=== PATIENT | male | born 1985 | race Caucasian/White ===

== ENCOUNTER 2018-12-28 11:34 | Emergency (ER) | payer OTHER, SELFPAY ==
[2018-12-28 11:41] VITALS: BP 136/84; PULSE 93; RESP 15; TEMP 36.8; O2SAT 97; BMI 29.7
--- NOTE | 2018-12-28 11:42 | DI.RAD.S_ITS ---
PROCEDURE: XR CHEST 2V INDICATIONS: cough,fever TECHNIQUE: 2 views of the chest were acquired. COMPARISON: None. FINDINGS: Surgical changes and devices: None. Lungs and pleura: Lungs are clear. No pleural effusions or pneumothorax. Mediastinum: Mediastinal contours are normal. Heart size is normal. Bones and chest wall: No suspicious bony abnormalities. Soft tissues appear unremarkable. IMPRESSION: Negative chest. No acute cardiopulmonary process is evident. Dictated by: Noble Zheng M.D. on 12/28/2018 at 10:50 Approved by: Noble Zheng M.D. on 12/28/2018 at 11:00
[2018-12-28 12:59] LABS: Influenza A and B by PCR Rapid Negative (Negative)
--- NOTE | 2018-12-28 14:41 | ED.FEVER ---
HPI - Fever <CLEMENTINA Flores - Last Filed: 12/28/18 21:56> General Chief Complaint: Fever Stated Complaint: RUNNING FEVER, ALMOST PASSED OUT Time Seen by Provider: 12/28/18 14:30 Source: patient Mode of arrival: ambulatory Limitations: no limitations History of Present Illness HPI Narrative: 33-year-old male with history of depression and that is a nonsmoker here for complaint of having cold like symptoms over the past week. He reports having cough as well as fevers. Positive p.o. intake. He does report having episodes of tussive vomiting. He reports that his cough has been productive. He has had nasal congestion. He denies any contact or family members that have the same symptoms. Is no other concerns or complaints. MD complaint: fever Related Data Home Medications Medication Instructions Recorded Confirmed citalopram 20 mg PO DAILY 12/28/18 12/28/18 ergocalciferol (vitamin D2) See Rx Instructions .ROUTE .COMPLEX 12/28/18 12/28/18 [Vitamin D2] omeprazole 20 mg PO DAILY 12/28/18 12/28/18 propranolol 10 mg PO BID PRN 12/28/18 12/28/18 zaleplon 10 mg PO BEDTIME 12/28/18 Previous Rx's Medication Instructions Recorded benzonatate 200 mg PO TID PRN #20 cap 12/28/18 ondansetron 4 mg PO Q8-12H PRN #10 tab 12/28/18 Allergies Allergy/AdvReac Type Severity Reaction Status Date / Time acetaminophen [From Vicodin] Allergy Verified 12/28/18 11:41 hydrocodone [From Vicodin] Allergy Verified 12/28/18 11:41 paroxetine [From Paxil] Allergy Verified 12/28/18 11:41 Review of Systems <CLEMENTINA Flores - Last Filed: 12/28/18 21:56> Constitutional Denies chills, Reports fever(s), Denies lethargy and Denies weakness Eyes Denies change in vision, Denies eye discharge, Denies irritation and Denies loss of vision ENT Ears, Nose, Mouth, and Throat: Denies change in voice, Reports nasal congestion, Reports nasal discharge, Denies neck pain and Denies sore throat Cardiovascular Denies chest pain, Denies irregular heart rhythm, Denies lightheadedness, Denies palpitations, Denies dyspnea, Denies dyspnea on exertion and Denies orthopnea Respiratory Reports cough, Denies dyspnea, Denies dyspnea on exertion and Denies wheezing Gastrointestinal Gastrointestinal: Denies abdominal pain, Denies change in bowel habits, Denies diarrhea, Denies nausea and Denies vomiting Genitourinary Denies hematuria, Denies flank pain, Denies urinary incontinence and Denies urinary urgency Musculoskeletal Denies neck pain Integumentary/Breasts Denies pruritus, Denies erythema, Denies rash and Denies wounds Neurologic Denies confusion, Denies loss of vision and Denies weakness Psychiatric Denies anxiety, Denies confusion, Denies depression, Denies homicidal ideation and Denies suicidal ideation Endocrine Denies palpitations Hematologic/Lymphatic Denies easy bruising Allergic/Immunologic Denies wheezing PFSH <CLEMENTINA Flores - Last Filed: 12/28/18 21:56> Social History Smoking Status: Never smoker Social History Smoking Status: Never smoker Exam <CLEMENTINA Flores - Last Filed: 12/28/18 21:56> Initial Vital Signs Initial Vital Signs: Vital Signs Temperature 98.3 F 12/28/18 11:41 Pulse Rate 93 H 12/28/18 11:41 Respiratory Rate 15 12/28/18 11:41 Blood Pressure 136/84 12/28/18 11:41 Pulse Oximetry 97 12/28/18 11:41 Const General: cooperative and well developed Nutritional Appearance: well nourished Orientation: alert, awake, oriented x3 and not confused HENNM Mouth: oral mucosae normal and moist mucous membranes Throat: posterior oropharynx normal Chest Chest: normal inspection of the chest Resp Effort & Inspection: normal respiratory effort, able to speak in complete sentences, no respiratory distress and no use of accessory muscles Auscultation: clear to auscultation bilaterally, no rales, no rhonchi and no wheezes Cardio Rate: regular rate Rhythm: regular rhythm Heart Sounds: no click, no gallops, no murmurs and no rubs Skin General: no rashes or lesions noted, No jaundice and No petechiae Neuro General: alert, oriented x3, gait normal and no focal motor deficits Speech: speech normal <Ricardo Perez DO - Last Filed: 12/29/18 20:50> Initial Vital Signs Initial Vital Signs: Vital Signs Temperature 98.3 F 12/28/18 11:41 Pulse Rate 93 H 12/28/18 11:41 Respiratory Rate 15 12/28/18 11:41 Blood Pressure 136/84 12/28/18 11:41 Pulse Oximetry 97 12/28/18 11:41 Course <CLEMENTINA Flores - Last Filed: 12/28/18 21:56> Orders Ordered: ED Orders 12/28/18 11:42 Chest [XR chest 2V] Stat 12/28/18 11:43 Influenza A and B by PCR Rapid Stat Vital Signs - 8 hr 12/28/18 15:14 Temperature 98.3 F Pulse Rate 88 Blood Pressure 136/78 Pulse Oximetry 99 <Ricardo Perez DO - Last Filed: 12/29/18 20:50> Orders Ordered: ED Orders 12/28/18 11:42 Chest [XR chest 2V] Stat 12/28/18 11:43 Influenza A and B by PCR Rapid Stat Vital Signs - 8 hr 12/28/18 15:14 Temperature 98.3 F Pulse Rate 88 Blood Pressure 136/78 Pulse Oximetry 99 MDM - Fever <CLEMENTINA Flores - Last Filed: 12/28/18 21:56> Lab Data Lab Results 12/28/18 Range/Units 11:43 Influenza A & B (PCR) Negative (Negative) Imaging Data Chest x-ray: Radiologist's impression: [place] [address] XRay Report Signed Patient: Lucas Curry JMR#: [id number] : 1985Acct:[id number] Age/Sex: 33 / MDate of Service: 12/28/18 Loc: ED Accession Number: [id number] Procedure: XR chest 2V Ordering Provider: Ricardo Perez D.O. PROCEDURE: XR CHEST 2V INDICATIONS: cough,fever TECHNIQUE: 2 views of the chest were acquired. COMPARISON: None. FINDINGS: Surgical changes and devices: None. Lungs and pleura: Lungs are clear. No pleural effusions or pneumothorax. Mediastinum: Mediastinal contours are normal. Heart size is normal. Bones and chest wall: No suspicious bony abnormalities. Soft tissues appear unremarkable. IMPRESSION: Negative chest. No acute cardiopulmonary process is evident. Dictated by: Noble Zheng M.D. on 12/28/2018 at 10:50 Approved by: Noble Zheng M.D. on 12/28/2018 at 11:00 [facility] Narrative Medical decision making narrative: Chest x-ray was obtained was negative for any acute findings. A influenza swab was obtained was negative. Signs and symptoms presents as a viral upper respiratory infection. Plenty of fluids and rest. Saline irrigation and nasal passages and hot showers to help with nasal congestion. Hyel-mcu-xdebpqq Tylenol or Motrin as needed for any discomfort and fever. May use ozlq-slf-tbdukvg guaifenesin to help thin secretions. He is prescribed Tessalon Perles to help with cough. Zofran is prescribed to help with any nausea. Follow up with primary care provider next week. Return emergency room for any worsening symptoms. <Ricardo Perez DO - Last Filed: 12/29/18 20:50> Lab Data Lab Results 12/28/18 Range/Units 11:43 Influenza A & B (PCR) Negative (Negative) Discharge Plan Departure Patient Disposition: Home Clinical Impression: Viral infection Discharge Date/Time: 12/28/18 15:15 Interventions: ED Discharge Assessment Last Done: 12/28/18 15:14 Instructions: Common Cold Activity Restrictions/Additional Instructions: Chest x-ray was obtained and was negative for any acute findings. Influenza swab was obtained and was negative. Signs and symptoms presents as a viral illness. Plenty of fluids and rest. May use mzvt-eqr-hqozggv guaifenesin to help with congestion. Oahe-inl-xpptxjq Tylenol or Motrin as needed for any discomfort and fever. Saline irrigation and nasal passages and hot showers to help with congestion follow up with primary care provider next week for re-evaluation. Tessalon Perles are prescribed help with cough use as directed. Zofran is prescribed help with any nausea also use as directed. For any worsening symptoms return to the emergency room. Prescriptions: New ondansetron 4 mg tablet,disintegrating 4 mg PO Q8-12H PRN (Reason: nausea and vomiting) Qty: 10 RF: 0 benzonatate 200 mg capsule 200 mg PO TID PRN (Reason: cough) Qty: 20 RF: 0 No Action propranolol 10 mg tablet 10 mg PO BID PRN (Reason: Anxiety) RF: 0 citalopram 20 mg tablet 20 mg PO DAILY RF: 0 omeprazole 20 mg capsule,delayed release(DR/EC) 20 mg PO DAILY RF: 0 zaleplon 10 mg capsule 10 mg PO BEDTIME RF: 0 ergocalciferol (vitamin D2) [Vitamin D2] 50,000 unit capsule See Rx Instructions .ROUTE .COMPLEX RF: 0 Referrals: Eli Horowitz [Primary Care Provider] - Stand Alone Forms: Work Release Note <Ricardo Perez DO - Last Filed: 12/29/18 20:50> Cosign ED Attending Farhanature Attestation: I was immediately available in the department for consultation. Documentation has been reviewed. I agree with assessment and plan.
[2018-12-28 15:14] VITALS: BP 136/78; PULSE 88; TEMP 36.8; O2SAT 99
== END 2018-12-28 15:15 | disposition home or self-care (01) ==
PROVIDERS: Emergency Medicine; Emergency Provider Nurse Practitioner Family; PCP Nurse Practitioner
DX: B34.9 Viral infection, unspecified (principal)
CPT/HCPCS: 71046; 87400; 99282; 99284

== ENCOUNTER → 2024-10-24 16:25 | Outpatient (CLI) | payer OTHER, SELFPAY ==
--- NOTE | 2024-10-24 16:27 | DI.MRI.S_ITS ---
PROCEDURE: MR SHOULDER LT WO/W CON INDICATIONS: SUPERIOR GLENOID LABRUM LESION LEFT SHOULDER TECHNIQUE: Noncontrast oblique coronal T1 spin echo and T2 fast spin echo with fat saturation, oblique sagittal T1 spin echo and T2 fast spin echo with fat saturation, axial T1 spin echo and T2 fast spin echo with fat saturation through the shoulder. Post-contrast oblique coronal, oblique sagittal, and axial T1 spin echo with fat saturation through the shoulder. COMPARISON: Outside Film, MR, MR SHOULDER LEFT WITHOUT CONTRAST, 06/03/2022, 14:13. [facility], CR, XR SHOULDER 2+ VIEWS LEFT, 07/30/2022, 15:00. FINDINGS: Image quality: Excellent. Rotator cuff: The supraspinatus, and the infraspinatus are unremarkable. The teres minor and the subscapularis are unremarkable. No muscle edema or fatty atrophy. Bones and bursae: Status post subacromial decompression. No significant degenerative changes acromioclavicular joint. Type 1 acromion. No os acromiale. No subacromial/subdeltoid bursitis. Multifocal mild subchondral cystic changes of the humeral head, reactive. Suture anchor is seen in the anterior humeral head. No acute fracture. Postprocedure changes in the superior glenoid. Capsule and soft tissues: Superior labral tear, extending anteriorly to the anterior superior labrum.. Small amount intraosseous fluid in the superior glenoid, favoring reactive. Small paralabral cyst about the superior posterior labrum, measuring 6 mm. The extra-articular biceps tendon is unremarkable. The intra-articular biceps tendon is not visualized. Patient is likely status post biceps tenodesis. No significant glenohumeral effusion. No intra-articular body. IMPRESSION: 1. Status post subacromial decompression and biceps tenodesis. 2. Status post prior superior labral repair. Superior labral tear, extending anteriorly to the anterior labrum. Somewhat limited evaluation given non arthro graphic exam. 6 mm paralabral cyst about the superior posterior labrum. Dictated by: Savita Nava M.D. on 10/25/2024 at 10:23 Approved by: Savita Nava M.D. on 10/25/2024 at 10:34
== END ==
PROVIDERS: PCP Internal Medicine; Referring Provider Internal Medicine; Visit Provider Internal Medicine
DX: S43.432A Superior glenoid labrum lesion of left shoulder, initial encounter (principal)
CPT/HCPCS: 73223; A9579

== ENCOUNTER 2025-08-24 09:25 | Day surgery (SDC) | payer OTHER, SELFPAY ==
[2025-08-24 09:42] VITALS: BP 113/77; PULSE 77; RESP 14; TEMP 36.4; O2SAT 98
[2025-08-24] MEDS: LACTATED RINGERS 1,000 ML 42 ML IV (09:53)
--- NOTE | 2025-08-24 09:58 | EKG_ITS ---
[address] [address] [address] [address] Test Date: 2025-08-24 Pat Name: Lucas Curry Department: Room: Gender: Male [employer] Machine Operator: Savannah ALDRIDGE : 1985 Requested By: Order Number: [id number] Reading MD: Robert Griffin Measurements Intervals [place] Rate: 72 P: 22 NE: 126 QRS: 19 QRSD: 78 T: 2 QT: 382 QTc: 418 Interpretive Statements Normal sinus rhythm Electronically Signed On 08-24-2025 18:46:43 PDT by Robert Griffin
--- NOTE | 2025-08-24 10:01 | PM.HP.IH.1 ---
History of Present Illness History of Present Illness Date Patient Seen: 08/24/25 Time Patient Seen: 10:02 Chief complaint: SDC Narrative: Lucas is a 40-year-old man with dysphagia and lymphadenopathy. See the office notes from July for details. He has not yet had his repeat imaging done. [facility] Social History Smoking Status: Current some day smoker alcohol intake: never Meds Home Medications and Allergies Home Medications ?Medication ?Instructions ?Recorded ?Confirmed ?Type albuterol sulfate 90 mcg/actuation 1 puff inhalation Q4H PRN wheezing 07/27/25 08/24/25 History aerosol inhaler gabapentin 600 mg tablet 600 mg PO 4XD 07/27/25 08/24/25 History syringe with needle, safety 3 mL #100 ea 07/27/25 07/27/25 History 23 gauge x 1 (BD Integra Syringe) testosterone cypionate 200 mg/mL 200 mg IM MONTHLY 07/27/25 08/24/25 History intramuscular oil Allergies Allergy/AdvReac Type Severity Reaction Status Date / Time acetaminophen (From Vicodin) Allergy Verified 08/24/25 09:40 hydrocodone (From Vicodin) Allergy Verified 08/24/25 09:40 paroxetine (From Paxil) Allergy Verified 08/24/25 09:40 Exam Vital Signs (past 8 hours): - 08/24/25 09:42 Temperature 97.5 F L Pulse Rate 77 Respiratory Rate 14 Blood Pressure 113/77 Pulse Oximetry 98 Oxygen Delivery Method Room Air Oxygen Delivery Method Room Air Const General: No acute distress Assessment & Plan Assessment and plan (1) Dysphagia: Qualifiers: Dysphagia type: unspecified Qualified Code(s): R13.10 - Dysphagia, unspecified Status: Acute Plan Esophagogastroduodenoscopy Time-Based Coding :: [TOTAL MINUTES] spent with patient and on the chart (including review of chart, obtaining history, exam, reviewing outside data, placing orders, documenting exam and treatment plan, and counseling patient) on [DATE]. PROFEE Cover Operator Document charge(s): No
[2025-08-24 10:23] VITALS: BP 115/70; PULSE 85; RESP 22; TEMP 36.3; O2SAT 98
--- NOTE | 2025-08-24 10:23 | PM.OP.EGD ---
Operative Date/Time/Diagnoses Date of procedure: 08/24/25 Time of procedure: 10:23 Pre-op diagnosis: Dysphagia Post-op diagnosis: same Procedure & Clinicians Study performed: Esophagogastroduodenoscopy Same procedure(s) as scheduled: Yes Surgeon: Den Goodman Anesthesia Type: MAC +/- Procedure Notes Procedure in detail: Surgeon: Den Goodman MD Anesthesia: Heidi Pantera DO A timeout was performed. A bite blocked was placed. The patient was positioned in the left lateral decubitus position. Anesthesia was administered. The endoscope was inserted through the bite block and passed through the esophagus and stomach and into the duodenum. The duodenal mucosa appeared normal. The scope was withdrawn into the duodenal bulb and no abnormalities were seen. The scope was withdrawn into the stomach. No abnormalities were seen. The scope was retroflexed and no abnormalities were seen. The scope was withdrawn into the esophagus and no abnormalities were seen. The remainder of the esophagus was normal. The scope was withdrawn. The patient was awakened and brought to recovery. Sedation time: 2 minutes Findings: Grossly normal esophagus, stomach and duodenum Post-procedure Disposition: PACU
[2025-08-24 10:25] VITALS: BP 117/73; PULSE 82; RESP 21; O2SAT 94
[2025-08-24 10:30] VITALS: BP 119/74; PULSE 78; RESP 13; TEMP 36.6; O2SAT 97
== END 2025-08-24 10:43 | disposition home or self-care (01) ==
PROVIDERS: PCP Nurse Practitioner; Referring Provider Nurse Practitioner; Visit Provider Surgery
PROC: 0DJ08ZZ Inspection of Upper Intestinal Tract, Via Natural or Artificial Opening Endoscopic (ICD-10-PCS; CPT 43235; principal; 2025-08-24 10:30)
DX: R13.10 Dysphagia, unspecified (principal)
CPT/HCPCS: 43235; 93005; J2704; J7120